=== PATIENT | female | born 1940 | race Caucasian/White ===

== ENCOUNTER 2017-04-06 15:00 | Emergency (ER) | payer MEDICARE, OTHER ==
[2017-04-06] MEDS ORDERED: Sodium Chloride 0.9% 10 ML Syringe FLUSH PRN (16:11)
--- NOTE | 2017-04-06 16:28 | EDM.PDOC ---
ED HPI GENERAL MEDICAL PROBLEM - General Chief Complaint: Lower Extremity Injury/Pain Stated Complaint: R HIP/LEG INJURY Time Seen by Provider: 04/06/17 15:06 Source of Information: Reports: Patient, Family History Limitations: Reports: No Limitations - History of Present Illness INITIAL COMMENTS - FREE TEXT/NARRATIVE: The [place] and she tripped on some gravel and she fell and landed on her right hip. She could not stand on it due to the pain. She did not hit her head or hurt her neck. She has a history of endocarditis and hear valve replacement. She is on coumadin. She has no headache, chest pain, shortness of breath, abdominal pain, nausea or vomiting. She denies any other injuries. Onset: Today, Sudden Duration: Minutes: Location: Reports: Lower Extremity, Right (Hip) Quality: Reports: Sharp Severity: Moderate Improves with: Reports: None Worsens with: Reports: Movement Context: Reports: Trauma (fall) Associated Symptoms: Denies: Chest Pain, Cough, Fever/Chills, Headaches, Nausea/ Vomiting, Shortness of Breath Right Hip Pain Score (Numeric/FACES): 5 - Related Data Allergies Allergy/AdvReac Type Severity Reaction Status Date / Time Penicillins Allergy Anaphylactic Verified 04/06/17 16:21 Shock Home Meds: Home Meds Warfarin [Coumadin] 5 mg PO DAILY 04/06/17 [History] Past Medical History Cardiovascular History: Reports: Heart Valve Replacement Other Cardiovascular History: Endocarditis - Past Surgical History Cardiovascular Surgical History: Reports: Valve Replacement Social & Family History - Tobacco Use Smoking Status *Q: Former Smoker Years of Tobacco use: 10 Packs/Tins Daily: 0.5 Used Tobacco, but Quit: Yes Month Tobacco Last Used: 15 Years ago - Caffeine Use Caffeine Use: Reports: None - Alcohol Use Number of Drinks Per Day: 1 Date of Last Drink: 04/06/17 Review of Systems - Review of Systems Review Of Systems: See Below Constitutional: Reports: No Symptoms Eyes: Reports: No Symptoms Ears: Reports: No Symptoms Nose: Reports: No Symptoms Mouth/Throat: Reports: No Symptoms Respiratory: Reports: No Symptoms Cardiovascular: Reports: No Symptoms GI/Abdominal: Reports: No Symptoms Genitourinary: Reports: No Symptoms Musculoskeletal: Reports: Other (Right hip pain) ED EXAM, GENERAL - Physical Exam Exam: See Below Exam Limited By: No Limitations General Appearance: Alert, No Apparent Distress Ears: Normal External Exam Nose: Normal Inspection Head: Atraumatic, Normocephalic Neck: Normal Inspection Respiratory/Chest: No Respiratory Distress, Lungs Clear, Normal Breath Sounds Cardiovascular: Regular Rate, Rhythm, No Edema, No Murmur GI/Abdominal: Soft, Non-Tender, No Organomegaly, No Mass Back Exam: Normal Inspection Extremities: Other (Pain upon palpation to the right hip. Good sensation and pulses distally.) EKG INTERPRETATION EKG Date: 04/06/17 Time: 16:38 Rhythm: NSR Rate (Beats/Min): 63 [place]: Normal P-Wave: Present QRS: Normal ST-T: Depressed (Lateral leads) QT: Normal EKG Interpretation Comments: PACs and LVH Course - Vital Signs Last Recorded V/S: Last Vital Signs Temp 97.1 F 04/06/17 15:10 Pulse 59 L 04/06/17 15:10 Resp 16 04/06/17 15:10 BP 139/69 04/06/17 15:10 Pulse Ox 93 L 04/06/17 15:10 - Orders/Labs/Meds Orders: Active Orders 24 hr Category Date Time Status Cardiac Monitoring [RC] . DIRECTED Care 04/06/17 16:11 Active EKG Documentation Completion [RC] STAT Care 04/06/17 16:12 Active Peripheral IV Care [RC] . DIRECTED Care 04/06/17 16:13 Active Chest 1V Frontal [CR] Stat Exams 04/06/17 16:13 Taken Hip Min 2V or 3V w Pelvis Rt [CR] Stat Exams 04/06/17 15:23 Taken Heparin Sodium/D5W [Heparin 25,000 Units in D5W 500 ML] Med 04/06/17 18:30 Active 25,000 units in 500 ml IV TITRATE Sodium Chloride 0.9% [Saline Flush] Med 04/06/17 16:11 Active 10 ml FLUSH ASDIRECTED PRN Peripheral IV Insertion Adult [OM.PC] Stat Oth 04/06/17 16:11 Ordered Medication Orders Heparin Sodium/Dextrose (Heparin 25,000 Units In D5w 500 Ml) 25,000 units in 500 mls @ 0 mls/hr IV TITRATE ZULEYMA; 16 UNITS/KG/HR PRN Reason: Protocol Sodium Chloride (Saline Flush) 10 ml FLUSH ASDIRECTED PRN PRN Reason: Keep Vein Open Last Admin: 04/06/17 16:24 Dose: 10 ml Labs: Laboratory Tests 04/06/17 04/06/17 04/06/17 Range/Units 16:23 16:23 16:23 WBC 11.40 H (3.98-10.04) K/mm3 RBC 4.36 (3.98-5.22) M/mm3 Hgb 12.8 (11.2-15.7) gm/L Hct 39.4 (34.1-44.9) % MCV 90.4 (79.4-94.8) fl MCH 29.4 (25.6-32.2) pg MCHC 32.5 (32.2-35.5) g/dl RDW Std Deviation 50.9 H (36.4-46.3) fL Plt Count 246 (182-369) K/mm3 MPV 9.9 (9.4-12.3) fl Neut % (Auto) 82.8 H (34.0-71.1) % Lymph % (Auto) 7.7 L (19.3-51.7) % [place] % (Auto) 8.2 (4.7-12.5) % Eos % (Auto) 0.6 L (0.7-5.8) Baso % (Auto) 0.3 (0.1-1.2) % Neut # (Auto) 9.44 H (1.56-6.13) K/mm3 Lymph # (Auto) 0.88 L (1.18-3.74) K/mm3 [place] # (Auto) 0.94 H (0.24-0.36) K/mm3 Eos # (Auto) 0.07 (0.04-0.36) K/mm3 Baso # (Auto) 0.03 (0.01-0.08) K/mm3 Manual Slide Review Abnormal smear PT 23.2 H (8.0-13.0) SECONDS INR 2.03 Sodium 141 (136-145) mEq/L Potassium 4.2 (3.5-5.1) mEq/L Chloride 105 (98-107) mEq/L Carbon Dioxide 27 (21-32) mEq/L Anion Gap 13.2 (5-15) BUN 19 H (7-18) mg/dL Creatinine 0.9 (0.55-1.02) mg/dL Est Cr Clr Drug Dosing 49.00 mL/min Estimated GFR (MDRD) > 60 (>60) mL/min BUN/Creatinine Ratio 21.1 H (14-18) Glucose 118 H (83-115) mg/dL Calcium 9.3 (8.5-10.1) mg/dL Total Bilirubin 0.4 (0.2-1.0) mg/dL AST 35 (15-37) U/L ALT 30 (14-59) U/L Alkaline Phosphatase 79 (46-116) U/L Total Protein 6.8 (6.4-8.2) g/dl Albumin 3.3 L (3.4-5.0) g/dl Globulin 3.5 gm/dL Albumin/Globulin Ratio 0.9 L (1-2) Meds: Medications Generic Name Dose Route Start Last Admin Trade Name Freq PRN Reason Stop Dose Admin Heparin Sodium/Dextrose 25,000 units in 500 mls @ 0 mls/hr 04/06/17 18:30 Heparin 25,000 Units In D5w 500 Ml IV TITRATE ZULEYMA Protocol 16 UNITS/KG/HR Sodium Chloride 10 ml 04/06/17 16:11 04/06/17 16:24 Saline Flush FLUSH 10 ml ASDIRECTED PRN Administration Keep Vein Open - Re-Assessments/Exams Free Text/Narrative Re-Assessment/Exam: 04/06/17 16:36 I ordered an x-ray of her right hip and she has a fracture at the head of the femur. I have ordered labs, CXR and EKG. I called Dr Fox and our orthopedic surgeon and our hospitalist Dr Alvarez and they did not feel comfortable taking care of her here because of her prosthetic heart valve and that she is on coumadin. 04/06/17 16:52 Her EKG shows a NSR with some ST depression in the lateral leads, PACs and LVH. 04/06/17 18:25 I fell it is medically necessary for her to be down where she had her surgery for her heart and where they have her medical records. I called [facility] in [place] and talked with Dr Chang and she accepted the patient. [facility] will be transporting the patient. I started a heparin drip because we will stop the coumadin. Departure - Departure Time of Disposition: 18:35 Disposition: DC/Tfer to Acute Hospital 02 Clinical Impression: H/O prosthetic heart valve Fall Qualifiers: Encounter type: initial encounter Qualified Code(s): W19.XXXA - Unspecified fall, initial encounter Closed right hip fracture Qualifiers: Encounter type: initial encounter Qualified Code(s): S72.001A - Fracture of unspecified part of neck of right femur, initial encounter for closed fracture - Discharge Information Referrals: PCP,Not In Area [Primary Care Provider] - Forms: ED Department Discharge - My Orders Last 24 Hours: My Active Orders 04/06/17 15:23 Hip Min 2V or 3V w Pelvis Rt [CR] Stat 04/06/17 16:11 Cardiac Monitoring [RC] . DIRECTED Sodium Chloride 0.9% [Saline Flush] 10 ml FLUSH ASDIRECTED PRN Peripheral IV Insertion Adult [OM.PC] Stat 04/06/17 16:12 EKG Documentation Completion [RC] STAT 04/06/17 16:13 Peripheral IV Care [RC] . DIRECTED Chest 1V Frontal [CR] Stat 04/06/17 18:30 Heparin Sodium/D5W [Heparin 25,000 Units in D5W 500 ML] 25,000 units in 500 ml IV TITRATE - Assessment/Plan Last 24 Hours: My Active Orders 04/06/17 15:23 Hip Min 2V or 3V w Pelvis Rt [CR] Stat 04/06/17 16:11 Cardiac Monitoring [RC] . DIRECTED Sodium Chloride 0.9% [Saline Flush] 10 ml FLUSH ASDIRECTED PRN Peripheral IV Insertion Adult [OM.PC] Stat 04/06/17 16:12 EKG Documentation Completion [RC] STAT 04/06/17 16:13 Peripheral IV Care [RC] . DIRECTED Chest 1V Frontal [CR] Stat 04/06/17 18:30 Heparin Sodium/D5W [Heparin 25,000 Units in D5W 500 ML] 25,000 units in 500 ml IV TITRATE
[2017-04-06] MEDS ORDERED: Heparin Sodium/D5W 25,000 UNITS/500 ML BAG IV SCH (18:30)
[2017-04-06 20:30] VITALS: BP 164/60
--- NOTE | 2017-04-07 08:33 | CR ---
Pelvis and right hip: AP view of the pelvis was obtained as well as AP and lateral views of the right hip. Minimally impacted subcapital fracture within the right hip is seen. Degenerative change is partially seen within the lower lumbar spine. Osteopenia is noted. No additional fracture or other abnormality is seen. Impression: 1. Slightly impacted subcapital fracture within the right hip. 2. Other incidental findings. Diagnostic code #3
--- NOTE | 2017-04-07 08:33 | CR ---
Chest: Portable view of the chest was obtained. Comparison: No previous study. Heart size at the upper limits of normal. Previous sternotomy for prosthetic heart valve is seen. Lungs are clear but hyperinflated. Bony structures are osteopenic. Impression: 1. Probable emphysematous change. Nothing acute is appreciated. Diagnostic code #2
== END 2017-04-06 20:15 ==
LOC: JD.ED 15:00
DX: S72.001A Fracture of unspecified part of neck of right femur, initial encounter for closed fracture (principal); Z88.0 Allergy status to penicillin; Z79.01 Long term (current) use of anticoagulants; Z95.2 Presence of prosthetic heart valve; Z87.891 Personal history of nicotine dependence; W01.0XXA Fall on same level from slipping, tripping and stumbling without subsequent striking against object, initial encounter
CPT/HCPCS: 36415; 71010; 73502; 80053; 85025; 85610; 93005; 96365; 96366; 99285; J1644; J7050